=== PATIENT | male | born 1980 | race Caucasian/White ===

== ENCOUNTER → 2016-08-07 | Outpatient (CLI) | payer MEDICARE | END | disposition home or self-care (01) | LOC: CARD 07:47 | PROVIDERS: ATTEND Registered Nurse | DX: G40.219 Localization-related (focal) (partial) symptomatic epilepsy and epileptic syndromes with complex partial seizures, intractable, without status epilepticus (principal) | CPT/HCPCS: 95819 ==

== ENCOUNTER → 2016-08-08 | Outpatient (CLI) | payer MEDICARE ==
[~2016-08-08] MED LIST: GADOBUTROL 10 MMOL/10 ML PFS ONE
== END | disposition home or self-care (01) ==
LOC: CFH 09:01
PROVIDERS: ATTEND Registered Nurse
DX: G40.219 Localization-related (focal) (partial) symptomatic epilepsy and epileptic syndromes with complex partial seizures, intractable, without status epilepticus (principal)
CPT/HCPCS: 70553; A9585

== ENCOUNTER 2016-08-20 16:33 | Emergency (ER) | payer MEDICARE ==
[~2016-08-20] VITALS: Ht 180.3 cm; Wt 90.8 kg
[2016-08-20] MEDS ORDERED: SODIUM CHLORIDE FLUSH 10ML SYR IVF ONE (17:00)
[2016-08-20] MEDS ORDERED: DIAZEPAM 5 MG/ML, 2ML IVPush ONE (17:00)
[2016-08-20 17:27] LABS: BLOOD UREA NITROGEN 16 mg/dL (7-18)
[2016-08-20] MEDS ORDERED: ALBU18HF INH (17:28)
[2016-08-20] MEDS ORDERED: LAMO25TA PO (17:28)
[2016-08-20] MEDS ORDERED: DIAZEPAM 5 MG/ML, 2ML ONE (17:37)
[2016-08-20 20:04] VITALS: BP 126/84
== END 2016-08-20 20:06 | disposition home or self-care (01) ==
LOC: ED 20:05
DX: R25.1 Tremor, unspecified (principal); H53.9 Unspecified visual disturbance
CPT/HCPCS: 36415; 80048; 82040; 85025; 96374; 99284; J3360

== ENCOUNTER 2017-07-10 10:51 | Emergency (ER) | payer MEDICARE ==
[~2017-07-10] VITALS: Ht 172.7 cm; Wt 90.0 kg
[~2017-07-10 10:51] MED LIST changes: +ALBU18HF INH; -GADOBUTROL 10 MMOL/10 ML PFS ONE; +LAMO25TA PO
[2017-07-10 11:41] LABS: BASOPHILS # (AUTO) 0.03 x10^3/uL (0-0.1); BASOPHILS % (AUTO) 0 % (0-1); EOSINOPHILS # (AUTO) 0.31 x10^3/uL (0-0.4); EOSINOPHILS % (AUTO) 4 % (1-7); LYMPHOCYTES # (AUTO) 0.89 x10^3/uL (1-3.4); LYMPHOCYTES % (AUTO) 11 % (22-44); MD NO; MEAN CORPUSCULAR HEMOGLOBIN 28.5 pg (27.5-34.5); MEAN CORPUSCULAR HGB CONC 33.3 g/dL (33.2-36.2); MEAN CORPUSCULAR VOLUME 85.4 fL (81-97); MEAN PLATELET VOLUME 6.7 fL (7.4-10.4); MONOCYTES # (AUTO) 0.59 x10^3/uL (0.2-0.8); MONOCYTES % (AUTO) 8 % (2-9); NEUTROPHILS # (AUTO) 5.99 x10^3/uL (1.8-6.8); NEUTROPHILS % (AUTO) 77 % (42-75); PLATELET COUNT 257 x10^3/uL (130-400); RED BLOOD COUNT 5.58 x10^6/uL (4.38-5.82); RED CELL DISTRIBUTION WIDTH 14.4 % (9.4-14.8)
[2017-07-10 11:52] LABS: ALANINE AMINOTRANSFERASE 50 U/L (12-78); ALBUMIN 4.2 g/dL (3.4-5.0); ANION GAP 6 mmol/L (5-15); CHLORIDE 104 mmol/L (98-107)
[2017-07-10 11:54] LABS: ALKALINE PHOSPHATASE 62 U/L (45-117); BILIRUBIN,TOTAL 0.6 mg/dL (0.2-1.0); TOTAL PROTEIN 7.2 g/dL (6.4-8.2)
[2017-07-10] MEDS ORDERED: HYDROcodone/APAP 5/325 TABLET PO ONE (12:30)
[2017-07-10] MEDS ORDERED: HYDROcodone/APAP 5/325 TABLET ONE (12:41)
[2017-07-10 12:46] VITALS: BP 134/76
== END 2017-07-10 12:59 | disposition home or self-care (01) ==
LOC: ED 12:25
DX: G40.909 Epilepsy, unspecified, not intractable, without status epilepticus (principal); F44.4 Conversion disorder with motor symptom or deficit
CPT/HCPCS: 36415; 80053; 83605; 85025; 99284